=== PATIENT | female | born 1965 | race Native Hawaiian/Other Pacific Islander ===

== ENCOUNTER 2018-06-12 06:09 | Emergency (ER) | payer BC ==
[2018-06-12] MEDS ORDERED: Sodium Chloride 0.9% 1,000 ML IV ONE (07:11)
--- NOTE | 2018-06-12 07:49 | ED PDOC ---
Arrival/HPI - General Chief Complaint: Abdominal Pain Historian: Patient - History of Present Illness Narrative History of Present Illness (Text): 06/12/18 07:49 52 year old female, whose past medical history includes appendectomy, presents to the emergency department complaining of right lower abdominal pain that began 4 days ago. Patient reports she had a CT and MRI done last summer which were normal. Patient reports she feels better after she passes stool. Patient also reports black pain, but denies any fever, chills, chest pain, shortness of breath, nausea, vomiting, diarrhea, urinary symptoms, neck pain, headache, dizziness, or any other complaints. Time/Duration: Other Symptom Onset: Gradual Symptom Course: Unchanged Activities at Onset: Light Context: Home Past Medical History - Provider Review Nursing Documentation Reviewed: Yes - Infectious Disease Hx of Infectious Diseases: None - Psychiatric Hx Substance Use: No Family/Social History - Physician Review Nursing Documentation Reviewed: Yes Family/Social History: No Known Family HX Smoking Status: Never Smoked Hx Alcohol Use: No Hx Substance Use: No Allergies/Home Meds Allergies/Adverse Reactions: Allergies No Known Allergies Allergy (Verified 06/12/18 06:18) Review of Systems - Physician Review All systems were reviewed & negative as marked: Yes - Review of Systems Constitutional: absent: Fevers, Other (chills) Respiratory: absent: SOB Cardiovascular: absent: Chest Pain Gastrointestinal: Abdominal Pain. absent: Diarrhea, Nausea Genitourinary Female: absent: Dysuria, Frequency, Hematuria Musculoskeletal: Back Pain. absent: Neck Pain Neurological: absent: Headache, Dizziness Physical Exam Vital Signs Reviewed: Yes Vital Signs Temp Pulse Resp BP Pulse Ox 06/12/18 06:30 97.7 F 77 18 115/77 98 Temperature: Afebrile Blood Pressure: Normal Pulse: Regular Respiratory Rate: Normal Appearance: Positive for: Well-Appearing, Non-Toxic, Comfortable Pain Distress: None Mental Status: Positive for: Alert and Oriented X 3 - Systems Exam Head: Present: Atraumatic, Normocephalic Pupils: Present: PERRL Extroacular Muscles: Present: EOMI Conjunctiva: Present: Normal Mouth: Present: Moist Mucous Membranes Neck: Present: Normal Range of Motion Respiratory/Chest: Present: Clear to Auscultation, Good Air Exchange. No: Respiratory Distress, Accessory Muscle Use Cardiovascular: Present: Regular Rate and Rhythm, Normal S1, S2. No: Murmurs Abdomen: Present: Scars (surgical scar to the RLQ), Other (Lower abdominal pain. R>L). No: Tenderness, Distention, Peritoneal Signs Back: Present: Normal Inspection Upper Extremity: Present: Normal Inspection. No: Cyanosis, Edema Lower Extremity: Present: Normal Inspection. No: Edema Neurological: Present: GCS=15, Speech Normal Skin: Present: Warm, Dry, Normal Color. No: Rashes Psychiatric: Present: Alert, Oriented x 3, Normal Insight, Normal Concentration Medical Decision Making ED Course and Treatment: 06/12/18 07:49 Impression: 52 year old female presents complaining of right lower abdominal pain that began 4 days ago associated with back pain. Plan: -- CT Abd & Pelvis IV contrast -- EKG -- Labs -- Pepcid, IV Fluids, Toradol, Zofran Inj -- Urine Culture -- POC Urine Test -- Urinalysis -- Reassess and disposition Progress Notes: EKG shows NSR at 65 BPM. Interpreted by me. PROCEDURE: CT Abdomen and Pelvis with contrast Dictator : Armando Means MD Report Date : 06/12/2018 11:07:29 IMPRESSION: Unremarkable contrast enhanced CT of the abdomen and pelvis. 06/12/18 11:40 On re-evaluation, patient feels better and is in no acute distress. I have discussed the results and plan with the patient, who expresses understanding. Patient in agreement with plan to be discharged home. Patient is stable for discharge. Patient was instructed to follow up with physician or return if symptoms worsen or new concerning symptoms arise. - Lab Interpretations I have reviewed the lab results: Yes - RAD Interpretation Radiology Orders: 06/12/18 07:11 ABD & PELVIS IV CONTRAST ONLY [CT] Stat Sheet Sewer: Radiologist - EKG Interpretation Interpreted by ED Physician: Yes Type: 12 lead EKG - Medication Orders Current Medication Orders: Sodium Chloride (Sodium Chloride 0.9%) 1,000 mls @ 250 mls/hr IV .Q4H ONE Stop: 06/12/18 11:10 Last Admin: 06/12/18 07:36 Dose: 250 mls/hr eMAR Start Stop Document 06/12/18 07:36 SRE (Rec: 06/12/18 07:37 SRE [id number]) Intravenous Solution Start Date 06/12/18 Start Time 07:35 End Date 06/12/18 End time 08:35 Total Infusion Time 60 Discontinued Medications Famotidine (Pepcid) 20 mg IVP STAT STA Stop: 06/12/18 07:11 Last Admin: 06/12/18 07:37 Dose: 20 mg IVP Administration Document 06/12/18 07:37 SRE (Rec: 06/12/18 07:37 SRE [id number]) Charges for Administration # of IVP Administrations 1 Ketorolac Tromethamine (Toradol) 30 mg IVP STAT STA Stop: 06/12/18 07:11 Last Admin: 06/12/18 07:37 Dose: 30 mg MAR Pain Assessment Document 06/12/18 07:37 SRE (Rec: 06/12/18 07:[address]) Pain Reassessment Is this a pain reassessment? Yes Sleep Is patient sleeping during reassessment? No Presence of Pain Presence of Pain Yes Pain Scale Used Protocol: PSCALES Pain Scale Used Numeric IVP Administration Document 06/12/18 07:37 SRE (Rec: 06/12/18 07:40 SRE [id number]) Charges for Administration # of IVP Administrations 1 Ondansetron HCl (Zofran Inj) 4 mg IVP STAT STA Stop: 06/12/18 07:11 Last Admin: 06/12/18 07:37 Dose: 4 mg IVP Administration Document 06/12/18 07:37 SRE (Rec: 06/12/18 07:37 SRE [id number]) Charges for Administration # of IVP Administrations 2 - Scribe Statement The provider has reviewed the documentation as recorded by the Ping Lutz Provider Scribe Attestation: All medical record entries made by the Joseibgrace were at my direction and personally dictated by me. I have reviewed the chart and agree that the record accurately reflects my personal performance of the history, physical exam, medical decision making, and the department course for this patient. I have also personally directed, reviewed, and agree with the discharge instructions and disposition. Disposition/Present on Arrival - Present on Arrival Any Indicators Present on Arrival: No History of DVT/PE: No History of Uncontrolled Diabetes: No Urinary Catheter: No History of Decub. Ulcer: No History Surgical Site Infection Following: None - Disposition Have Diagnosis and Disposition been Completed?: Yes Diagnosis: Abdominal pain Disposition: HOME/ ROUTINE Disposition Time: 11:10 Condition: IMPROVED Discharge Instructions (ExitCare): Acute Abdomen (Belly Pain), Adult (DC) Additional Instructions: MICHAEL RAMSEY, thank you for letting us take care of you today. The emergency medical care you received today was directed at your acute symptoms. If you were prescribed any medication, please fill it and take as directed. It may take several days for your symptoms to resolve. Return to the Emergency Department if your symptoms worsen, do not improve, or if you have any other problems. Please contact your doctor or call one of the physicians/clinics you have been referred to that are listed on the Patient Visit Information form that is included in your discharge packet. Bring any paperwork you were given at discharge with you along with any medications you are taking to your follow up visit. Our treatment cannot replace ongoing medical care by a primary care provider outside of the emergency department. Thank you for allowing the [facility] team to be part of your care today. Follow up with our clinic in 3-5 days for re-evaluation and further management. Prescriptions: Famotidine [Pepcid] 40 mg PO DAILY #14 tab Simethicone [Gas Relief] 80 mg PO Q8 PRN #20 ctb PRN Reason: abdominal gas Referrals: [facility] [Outside] - Follow up with primary Gracy Humphrey MD [Medical Doctor] - Follow up with primary Forms: [employer] (Estonian)
[2018-06-12 07:55] LABS: BASO # 0.01 K/mm3 (0.0-2.0); BASO % 0.3 % (0.0-3.0); EOS # 0.1 (0.0-0.7); EOS % 2.9 % (1.5-5.0); HEMOGLOBIN 12.9 g/dL (12.0-16.0); LYMPH # 1.4 (1.2-3.4); LYMPH % 36.1 % (22.0-35.0); MEAN CELL VOLUME 93.3 fl (80.0-105.0); MEAN CORPUSCULAR HEMOGLOBIN 29.8 pg (25.0-35.0); MEAN CORPUSCULAR HGB CONC 31.9 g/dl (31.0-37.0); MEAN PLATELET VOLUME 9.3 fl (7.0-11.0); MONO # 0.3 (0.1-0.6); MONO % 7.1 % (1.0-6.0); RBC 4.33 10^6/uL (3.5-6.1); RED CELL DISTRIBUTION WIDTH 12.6 % (11.5-14.5); WHITE BLOOD COUNT 3.8 10^3/uL (4.5-11.0)
[2018-06-12 08:15] LABS: ALBUMIN 3.8 g/dL (3.0-4.8); AMYLASE 110 U/L (35-125); AST/SGOT 23 U/L (14-36); BLOOD UREA NITROGEN 13 mg/dL (7-21); GFR NON-AFRICAN AMERICAN > 60; LIPASE 94 U/L (23-300)
[2018-06-12 08:18] LABS: ALT/SGPT < 6 U/L (7-56)
[2018-06-12 09:25] LABS: URINE BILIRUBIN NEGATIVE (NEGATIVE); URINE BLOOD NEGATIVE (NEGATIVE); URINE GLUCOSE (UA) NEGATIVE (NEGATIVE); URINE LEUKOCYTE ESTERASE SMALL Leu/uL (NEGATIVE); URINE PROTEIN NEGATIVE mg/dL (<30 mg/dL); URINE UROBILINOGEN 0.2 E.U./dL (<1 E.U./dL)
[2018-06-12 09:34] LABS: URINE APPEARANCE CLEAR (CLEAR); URINE COLOR YELLOW (YELLOW)
[2018-06-12] MEDS ORDERED: Iohexol 300 100 ML IJ ONE (10:23)
--- NOTE | 2018-06-12 11:11 | CT ---
Date of service: 06/12/2018 PROCEDURE: CT Abdomen and Pelvis with contrast HISTORY: lower abdominal pain COMPARISON: None. TECHNIQUE: Contrast dose: 100 cc of Omni 300 Radiation dose: Total exam DLP = 264.08 mGy-cm. This CT exam was performed using one or more of the following dose reduction techniques: Automated exposure control, adjustment of the mA and/or kV according to patient size, and/or use of iterative reconstruction technique. FINDINGS: LOWER THORAX: Unremarkable. LIVER: Unremarkable. No gross lesion or ductal dilatation. GALLBLADDER AND BILE DUCTS: Unremarkable. PANCREAS: Unremarkable. No gross lesion or ductal dilatation. SPLEEN: Unremarkable. ADRENALS: Unremarkable. No mass. KIDNEYS AND URETERS: Unremarkable. No hydronephrosis. No solid mass. VASCULATURE: Unremarkable. No aortic aneurysm. No aortic atherosclerotic calcification or mural plaque present. BOWEL: Unremarkable. No obstruction. No gross mural thickening. APPENDIX: Normal appendix. PERITONEUM: Unremarkable. No free fluid. No free air. LYMPH NODES: Unremarkable. No enlarged lymph nodes. BLADDER: Unremarkable. REPRODUCTIVE: Unremarkable. BONES: No acute fracture. OTHER FINDINGS: None. IMPRESSION: Unremarkable contrast enhanced CT of the abdomen and pelvis.
[2018-06-12 11:46] VITALS: BP 100/55; PULSE 72; RESP 18; TEMP 98.5; O2SAT 97
--- NOTE | 2018-06-12 12:28 | CARD ---
APPROVED REPORT Date of service: 06/12/2018 EKG Measurement Heart [id number] <Conclusion> Normal sinus rhythm Normal ECG
== END 2018-06-12 11:47 | disposition home or self-care (01) ==
LOC: ED 06:09
DX: R10.31 Right lower quadrant pain (principal)
CPT/HCPCS: 74177; 80053; 81001; 82150; 83690; 83735; 85025; 87086; 93005; 96361; 96374; 96375; 99284; J1885; J2405; J7030; Q9967